=== PATIENT | female | born 1970 | race Caucasian/White ===

== ENCOUNTER → 2017-12-22 07:36 | Outpatient (CLI) | payer OTHER, SELFPAY ==
--- NOTE | 2017-12-22 | DI.MG.S_ITS ---
BILATERAL DIGITAL SCREENING MAMMOGRAM 3D/2D WITH CAD: 12/22/2017 CLINICAL: Routine screening. Comparison is made to exams dated: 11/03/2016 mammogram, 10/08/2015 mammogram, and 10/03/2014 mammogram - . There are scattered fibroglandular elements in both breasts. Current study was also evaluated with a Computer Aided Detection (CAD) system. No significant masses, calcifications, or other findings are seen in either breast. There has been no significant interval change. IMPRESSION: NEGATIVE There is no mammographic evidence of malignancy. A 1 year screening mammogram is recommended. This exam was interpreted at Station ID: [id number]. NOTE: For mammograms, a report in lay terms will be sent to the patient. Approximately 15% of breast malignancies will not be visualized mammographically. In the management of a palpable breast mass, a negative mammogram must not discourage biopsy of a clinically suspicious lesion. Electronically Signed By: David angeles/nela:12/22/2017 17:49:11 letter sent: Normal Exam ACR BI-RADS Category 1: Negative 3341F
== END ==
PROVIDERS: PCP Nurse Practitioner Family; Visit Provider Nurse Practitioner Family
DX: Z12.31 Encounter for screening mammogram for malignant neoplasm of breast (principal)
CPT/HCPCS: 77063; 77067

== ENCOUNTER → 2019-01-04 08:49 | Outpatient (CLI) | payer OTHER, SELFPAY ==
--- NOTE | 2019-01-04 | DI.MG.S_ITS ---
BILATERAL DIGITAL SCREENING MAMMOGRAM 3D/2D WITH CAD: 01/04/2019 CLINICAL: Routine screening. Comparison is made to exams dated: 12/22/2017 mammogram, 11/03/2016 mammogram, and 10/08/2015 mammogram - [facility]. There are scattered fibroglandular elements in both breasts. Current study was also evaluated with a Computer Aided Detection (CAD) system. No significant masses, calcifications, or other findings are seen in either breast. There has been no significant interval change. IMPRESSION: NEGATIVE There is no mammographic evidence of malignancy. A 1 year screening mammogram is recommended. This exam was interpreted at Station ID: [id number]. NOTE: For mammograms, a report in lay terms will be sent to the patient. Approximately 15% of breast malignancies will not be visualized mammographically. In the management of a palpable breast mass, a negative mammogram must not discourage biopsy of a clinically suspicious lesion. Electronically Signed By: Gabriele sawyer/nela:01/04/2019 09:23:36 letter sent: Normal Exam ACR BI-RADS Category 1: Negative 3341F
== END ==
PROVIDERS: PCP Nurse Practitioner Family; Visit Provider Nurse Practitioner Family
DX: Z12.31 Encounter for screening mammogram for malignant neoplasm of breast (principal)
CPT/HCPCS: 77063; 77067

== ENCOUNTER → 2020-01-14 17:04 | Outpatient (CLI) | payer OTHER, SELFPAY ==
--- NOTE | 2020-01-14 17:06 | DI.MG.S_ITS ---
BILATERAL DIGITAL SCREENING MAMMOGRAM 3D/2D WITH CAD: 01/14/2020 CLINICAL: Routine screening. Comparison is made to exams dated: 01/04/2019 mammogram, 12/22/2017 mammogram, and 11/03/2016 mammogram - [facility]. There are scattered fibroglandular elements in both breasts. Current study was also evaluated with a Computer Aided Detection (CAD) system. There is a possible new mass in the right breast at 12 o'clock middle depth. No other significant masses, calcifications, or other findings are seen in either breast. IMPRESSION: INCOMPLETE: NEEDS ADDITIONAL IMAGING EVALUATION The possible new mass in the right breast is indeterminate. Additional views with possible ultrasound are recommended. This exam was interpreted at Station ID: [id number]. NOTE: For mammograms, a report in lay terms will be sent to the patient. Approximately 15% of breast malignancies will not be visualized mammographically. In the management of a palpable breast mass, a negative mammogram must not discourage biopsy of a clinically suspicious lesion. Electronically Signed By: Ricardo bowers/nela:01/15/2020 08:03:21 letter sent: Additional Imaging Needed ACR BI-RADS Category 0: Incomplete 3340F
== END ==
PROVIDERS: PCP Nurse Practitioner Family; Referring Provider Nurse Practitioner Family; Visit Provider Nurse Practitioner Family
DX: Z12.31 Encounter for screening mammogram for malignant neoplasm of breast (principal)
CPT/HCPCS: 77063; 77067

== ENCOUNTER → 2020-02-12 14:12 | Outpatient (CLI) | payer OTHER, SELFPAY ==
--- NOTE | 2020-02-12 14:25 | DI.MG.S_ITS ---
Patient Name: ADALBERTO ZAVALA date: 1970 Sex: F Attending Physician: Indications: Date: 02/12/2020 14:17 At the request of: PRABHJOT FITZGERALD Procedure: MM special view RT UNILATERAL RIGHT DIGITAL DIAGNOSTIC MAMMOGRAM 3D/2D WITH ADDITIONAL VIEWS: 02/12/2020 CLINICAL: Additional evaluation requested from prior study. Comparison is made to exams dated: 01/04/2019 mammogram, 12/22/2017 mammogram, 11/03/2016 mammogram, 01/14/2020 mammogram, 10/08/2015 mammogram, and 10/03/2014 mammogram - [facility]. There are scattered fibroglandular elements in right breast. There is a 0.5 cm round mass with an obscured and circumscribed margin in the right breast at 12 o'clock middle depth. No other significant masses or calcifications are seen in the breast. IMPRESSION: INCOMPLETE: NEEDS ADDITIONAL IMAGING EVALUATION The 0.5 cm round mass in the right breast is indeterminate. A targeted ultrasound is recommended and will immediately follow. This exam was interpreted at Station ID: [id number]. NOTE: For mammograms, a report in lay terms will be sent to the patient. Approximately 15% of breast malignancies will not be visualized mammographically. In the management of a palpable breast mass, a negative mammogram must not discourage biopsy of a clinically suspicious lesion. Electronically Signed By: Sudheer Martinez M.D. slc/:02/12/2020 14:46:51 Continued Report - Page 2 of 2 Patient Name: ADALBERTO ZAVALA date: 1970 Sex: F Attending Physician: Indications: Date: 02/12/2020 14:17 At the request of: PRABHJOT FITZGERALD Procedure: MM special view RT ACR BI-RADS Category 0: Incomplete 3340F
--- NOTE | 2020-02-12 14:45 | DI.US.S_ITS ---
Patient Name: ADALBERTO ZAVALA date: 1970 Sex: F Attending Physician: Indications: Date: 02/12/2020 15:06 At the request of: PRABHJOT FITZGERALD Procedure: US breast RT limited LIMITED ULTRASOUND OF RIGHT BREAST: 02/12/2020 CLINICAL: Patient returns today to evaluate a focal asymmetry in the right breast. Comparison is made to exams dated: 02/12/2020 mammogram, 01/14/2020 mammogram, 01/04/2019 mammogram, 12/22/2017 mammogram, 11/03/2016 mammogram, and 10/08/2015 mammogram - [facility]. Color flow and real-time ultrasound of the right breast 12 o'clock region were performed. Subramanian scale images of the real-time examination were reviewed. There is a 0.7 cm x 0.7 cm x 0.4 cm oval cyst with an irregular internal wall in the right breast at 12 o'clock middle depth 3-4 cm from the nipple. This oval cyst is hypoechoic with internal echoes. This correlates with mammography findings. Color flow imaging demonstrates that there is no vascularity present. There also is a 0.5 cm x 0.4 cm x 0.3 cm oval cyst in the right breast at 12 o'clock middle depth 3-4 cm from the nipple. This oval cyst is hypoechoic with internal echoes. This correlates with mammography findings. Color flow imaging demonstrates that there is no vascularity present. Additionally, there is a benign 1 cm x 0.9 cm x 0.5 cm oval cyst in the right breast central to the nipple anterior depth. This oval cyst is anechoic with a well-defined boundary. Color flow imaging demonstrates that there is no vascularity present. IMPRESSION: PROBABLY BENIGN 1) The 0.7 cm oval cyst in the right breast at 12 o'clock middle depth is consistent with a complicated cyst and is probably benign. 2) The 0.5 cm oval cyst in the right breast at 12 o'clock middle depth is consistent with a complicated cyst and is probably benign. Continued Report - Page 2 of 2 Patient Name: ADALBERTO ZAVALA date: 1970 Sex: F Attending Physician: Indications: Date: 02/12/2020 15:06 At the request of: PRABHJOT FITZGERALD Procedure: US breast RT limited 3) The 1 cm oval cyst in the right breast central to the nipple anterior depth is consistent with a simple cyst and is benign. A follow-up mammogram and an ultrasound in 6 months is recommended to demonstrate stability. Exam results conveyed to the patient. This exam was interpreted at Station ID: [id number]. Electronically Signed By: Sudheer Martinez M.D. slc/:02/12/2020 16:57:08 letter sent: Followup Recommended Ultrasound BI-RADS: 3 Probably benign
== END ==
PROVIDERS: PCP Nurse Practitioner Family; Referring Provider Nurse Practitioner Family; Visit Provider Nurse Practitioner Family
DX: R92.8 Other abnormal and inconclusive findings on diagnostic imaging of breast (principal); N60.02 Solitary cyst of left breast
CPT/HCPCS: 76642; 77065; G0279

== ENCOUNTER → 2020-07-23 14:11 | Outpatient (CLI) | payer OTHER, SELFPAY ==
--- NOTE | 2020-07-23 14:12 | DI.MG.S_ITS ---
UNILATERAL RIGHT DIGITAL DIAGNOSTIC MAMMOGRAM 3D/2D SHORT-TERM FOLLOW-UP: 07/23/2020 CLINICAL: Patient returns for a 6 month follow up of the right breast. Comparison is made to exams dated: 02/12/2020 mammogram, 01/14/2020 mammogram, and 01/04/2019 mammogram - [facility]. There are scattered fibroglandular elements in right breast. There is a 0.6 cm round equal density cyst in the right breast at 12 o'clock anterior depth. This is demonstrated to be cystic by prior ultrasound and has not significantly changed in mammographic appearance. There also is a 1.2 cm low density oval cyst as demonstrated by prior ultraosund, in the right breast at 12 o'clock middle depth. This also has not significantly changed in mammographic appearance. No other significant masses or calcifications are seen in the breast. IMPRESSION: INCOMPLETE: NEEDS ADDITIONAL IMAGING EVALUATION The 0.6 cm cyst in the right breast at 12 o'clock anterior depth is stable. The 1.2 cm oval cyst in the right breast at 12 o'clock middle depth is also stable. Ultrasound is recommended to confirm stability of this area. This was performed immediately following this exam. This exam was interpreted at Station ID: [id number]. NOTE: For mammograms, a report in lay terms will be sent to the patient. Approximately 15% of breast malignancies will not be visualized mammographically. In the management of a palpable breast mass, a negative mammogram must not discourage biopsy of a clinically suspicious lesion. Electronically Signed By: Ilsa cheatham/:07/23/2020 14:47:57 ACR BI-RADS Category 0: Incomplete 3340F
--- NOTE | 2020-07-23 14:13 | DI.US.S_ITS ---
LIMITED ULTRASOUND OF RIGHT BREAST: 07/23/2020 CLINICAL: Patient returns today to evaluate focal asymmetries in the right breast. Comparison is made to exams dated: 07/23/2020 mammogram, 02/12/2020 ultrasound, 02/12/2020 mammogram, 01/14/2020 mammogram, 01/04/2019 mammogram, and 12/22/2017 mammogram - [facility]. Color flow and real-time ultrasound of the right breast 12 o'clock, and retroareolar regions were performed. Subramanian scale images of the real-time examination were reviewed. There is a 0.5 cm x 0.4 cm x 0.4 cm cluster of irregular micro cysts with an irregular internal wall in the right breast at 12 o'clock middle depth 3-4 cm from the nipple. This cluster of irregular micro cysts is hypoechoic with internal echoes. It has not significantly changed and correlates with mammography findings. Color flow imaging demonstrates that there is no vascularity present. There also is a benign 0.4 cm x 0.2 cm x 0.1 cm oval cyst in the right breast at 12 o'clock middle depth 4 cm from the nipple. This oval cyst is hypoechoic with internal echoes. This abnormality is decreased in size and correlates with mammography findings. Color flow imaging demonstrates that there is no vascularity present. Additionally, there is a benign 1 cm x 1.2 cm x 0.5 cm oval cyst in the right breast central to the nipple anterior depth. This oval cyst is anechoic with a well-defined boundary. This cyst is stable. Color flow imaging demonstrates that there is no vascularity present. IMPRESSION: PROBABLY BENIGN The 0.5 cm cluster of irregular micro cysts in the right breast at 12 o'clock middle depth is consistent with a complicated cyst and is probably benign. A follow-up ultrasound in 6 months is recommended to demonstrate stability of this lesion. The 0.4 cm cyst in the right breast at 12 o'clock middle depth has decreased in size, is consistent with a complicated cyst and is benign. The 1.2 cm cyst in the right breast central to the nipple anterior depth is a benign simple cyst. Findings and recommendations were conveyed to the patient at time of exam. This exam was interpreted at Station ID: [id number]. Electronically Signed By: Ilsa cheatham/:07/23/2020 16:17:50 letter sent: Followup Recommended Ultrasound BI-RADS: 3 Probably benign
== END ==
PROVIDERS: PCP Nurse Practitioner Family; Referring Provider Nurse Practitioner Family; Visit Provider Nurse Practitioner Family
DX: R92.8 Other abnormal and inconclusive findings on diagnostic imaging of breast (principal); N60.01 Solitary cyst of right breast
CPT/HCPCS: 76642; 77065; G0279

== ENCOUNTER → 2021-01-12 09:14 | Outpatient (CLI) | payer OTHER, SELFPAY ==
--- NOTE | 2021-01-12 | DI.MG.S_ITS ---
BILATERAL DIGITAL DIAGNOSTIC MAMMOGRAM 3D/2D: 01/12/2021 CLINICAL: Short term follow up, due bilateral. Family history of breast cancer. Comparison is made to exams dated: 07/23/2020 mammogram, 02/12/2020 mammogram, 01/14/2020 mammogram, and 01/04/2019 mammogram - [facility]. There are scattered fibroglandular elements in both breasts. There is an oval equal density asymmetry with an indistinct margin in the right breast at 12 o'clock middle depth. This is less prominent. There also is a new oval low density mass with an obscured and circumscribed margin in the right breast at 11 o'clock middle depth. There is an oval equal density focal asymmetry with an obscured and circumscribed margin in the left breast at 1 o'clock middle depth. No other significant masses or calcifications are seen in either breast. IMPRESSION: INCOMPLETE: NEEDS ADDITIONAL IMAGING EVALUATION The oval equal density asymmetry in the right breast at 12 o'clock middle depth is indeterminate. An ultrasound is recommended. The new oval low density mass in the right breast at 11 o'clock middle depth is indeterminate. An ultrasound is recommended. The oval equal density focal asymmetry in the left breast at 1 o'clock middle depth is indeterminate. An ultrasound is recommended. Ultrasound will be performed immediately following the current exam. This exam was interpreted at Station ID: [id number]. NOTE: For mammograms, a report in lay terms will be sent to the patient. Approximately 15% of breast malignancies will not be visualized mammographically. In the management of a palpable breast mass, a negative mammogram must not discourage biopsy of a clinically suspicious lesion. Electronically Signed By: Mario Garay M.D. ddpoppy/:01/12/2021 10:31:05 ACR BI-RADS Category 0: Incomplete 3340F
--- NOTE | 2021-01-12 | DI.US.S_ITS ---
LIMITED ULTRASOUND OF LEFT BREAST: 01/12/2021 CLINICAL: Patient returns today to evaluate a focal asymmetry in the left breast. Comparison is made to exams dated: 01/12/2021 mammogram, 01/14/2020 mammogram, and 01/04/2019 mammogram - [facility]. Color flow and real-time ultrasound of the left breast were performed on the areas of interest. There is a 0.3 cm x 0.3 cm x 0.2 cm oval cyst in the left breast at 12 o'clock middle depth 3 cm from the nipple. This oval cyst is hypoechoic with a well-defined boundary, internal echoes, and posterior acoustic enhancement. This correlates with mammography findings. Color flow imaging demonstrates that there is no vascularity present. There also is a benign 0.8 cm x 0.5 cm x 0.6 cm oval cyst in the left breast at 12 o'clock middle depth 3 cm from the nipple. This oval cyst is anechoic with a well-defined boundary and posterior acoustic enhancement. This correlates with mammography findings. Color flow imaging demonstrates that there is no vascularity present. IMPRESSION: PROBABLY BENIGN The 0.3 cm x 0.3 cm x 0.2 cm oval cyst in the left breast at 12 o'clock middle depth is consistent with a complicated cyst and is probably benign. Follow-up mammogram and ultrasound in 6 months is recommended. The 0.8 cm x 0.5 cm x 0.6 cm oval cyst in the left breast at 12 o'clock middle depth is consistent with a simple cyst and is benign. A follow-up mammogram and an ultrasound in 6 months are recommended to demonstrate stability. Future imaging is recommended as follows: 01/20/2021 right mammogram and an ultrasound. This exam was interpreted at Station ID: [id number]. Electronically Signed By: Mario kimbrough/:01/12/2021 15:25:56 letter sent: Followup Recommended Ultrasound BI-RADS: 3 Probably benign
--- NOTE | 2021-01-12 | DI.US.S_ITS ---
LIMITED ULTRASOUND OF RIGHT BREAST: 01/12/2021 CLINICAL: 6 month follow-up of cysts. Comparison is made to exams dated: 01/12/2021 mammogram, 07/23/2020 ultrasound, 07/23/2020 mammogram, 02/12/2020 ultrasound, 02/12/2020 mammogram, and 01/14/2020 mammogram - [facility]. Color flow and real-time ultrasound of the right breast 12 o'clock region were performed on the areas of interest. There is a stable 0.5 cm x 0.2 cm x 0.2 cm cluster of oval cysts with a septated internal wall in the right breast at 12 o'clock middle depth 4 cm from the nipple. This cluster of oval cysts is hypoechoic with posterior acoustic enhancement. This correlates with mammography findings. Color flow imaging demonstrates that there is no vascularity present. There also is a benign 1.1 cm x 0.7 cm x 1 cm oval cyst in the right breast at 12 o'clock anterior depth 2 cm from the nipple. This oval cyst is anechoic with a well-defined boundary and posterior acoustic enhancement. This correlates with mammography findings. Color flow imaging demonstrates that there is no vascularity present. Additionally, there is a stable benign 0.2 cm x 0.2 cm x 0.2 cm oval cyst in the right breast at 12 o'clock anterior depth 4 cm from the nipple. This oval cyst is hypoechoic with internal echoes. Color flow imaging demonstrates that there is no vascularity present. IMPRESSION: PROBABLY BENIGN The stable 0.5 cm x 0.2 cm x 0.2 cm cluster of oval cysts in the right breast at 12 o'clock middle depth is probably benign. The 1.1 cm x 0.7 cm x 1 cm oval cyst in the right breast at 12 o'clock anterior depth is consistent with a simple cyst and is benign. The stable 0.2 cm x 0.2 cm x 0.2 cm oval cyst in the right breast at 12 o'clock anterior depth is benign. A follow-up right mammogram and an ultrasound in 12 months are recommended. Future imaging is recommended as follows: 01/20/2021 right mammogram and an ultrasound. This exam was interpreted at Station ID: [id number]. Electronically Signed By: Mario Garay M.D. ddp/:01/12/2021 14:07:26 Entry: cm - 01/13/2021 08:03:42 Ultrasound BI-RADS: 3 Probably benign
== END ==
PROVIDERS: PCP Nurse Practitioner Family; Referring Provider Nurse Practitioner Family; Visit Provider Nurse Practitioner Family
DX: R92.8 Other abnormal and inconclusive findings on diagnostic imaging of breast (principal); N60.01 Solitary cyst of right breast; N60.02 Solitary cyst of left breast; Z80.3 Family history of malignant neoplasm of breast
CPT/HCPCS: 76642; 77066; G0279

== ENCOUNTER → 2021-11-18 08:02 | Outpatient (CLI) | payer OTHER, SELFPAY | PROVIDERS: PCP Nurse Practitioner Family; Referring Provider Internal Medicine; Visit Provider Internal Medicine | DX: Z53.20 Procedure and treatment not carried out because of patient's decision for unspecified reasons (principal) ==

== ENCOUNTER → 2022-02-08 08:43 | Outpatient (CLI) | payer OTHER, SELFPAY ==
--- NOTE | 2022-02-08 | DI.MG.S_ITS ---
BILATERAL DIGITAL DIAGNOSTIC MAMMOGRAM 3D/2D SHORT-TERM FOLLOW-UP: 02/08/2022 CLINICAL: Short term follow up of the left breast, due for bilateral imaging. Comparison is made to exams dated: 01/12/2021 mammogram, 07/23/2020 mammogram, 02/12/2020 mammogram, and 01/14/2020 mammogram - [facility]. There are scattered areas of fibroglandular density in both breasts (category b / 25%-50% glandular tissue). There is an oval equal density asymmetry with an indistinct margin in the right breast at 12 o'clock middle depth. This is not significantly changed. There also is an oval low density mass with an obscured and circumscribed margin in the right breast at 11 o'clock middle depth. This is not significantly changed. There is an oval equal density focal asymmetry with an obscured and circumscribed margin in the left breast at 1 o'clock middle depth. This is less prominent. No other significant masses or calcifications are seen in either breast. IMPRESSION: INCOMPLETE: NEEDS ADDITIONAL IMAGING EVALUATION The oval equal density asymmetry in the right breast at 12 o'clock middle depth is indeterminate. An ultrasound is recommended. The oval low density mass in the right breast at 11 o'clock middle depth and oval equal density focal asymmetry at 12 o'clock remain indeterminate. An ultrasound is recommended for further evaluation and is scheduled to immediately follow this examination. The oval equal density focal asymmetry in the left breast at 1 o'clock middle depth is indeterminate. An ultrasound is recommended but will need to be scheduled for a later date. Based on the Tyrer Cuzick model (a risk assessment model) the patient's lifetime risk is 7.6% and her 10 year risk is 1.9%. According to the ACR, ACS, and NCCN guidelines, an annual breast MRI exam along with mammogram is recommended if the patient's lifetime risk is 20% or greater. This exam was interpreted at Station ID: [id number]. NOTE: For mammograms, a report in lay terms will be sent to the patient. Approximately 15% of breast malignancies will not be visualized mammographically. In the management of a palpable breast mass, a negative mammogram must not discourage biopsy of a clinically suspicious lesion. Electronically Signed By: Gabriele Santiago M.D. aty/:02/08/2022 10:16:21 ACR BI-RADS Category 0: Incomplete 3340F
--- NOTE | 2022-02-08 | DI.US.S_ITS ---
ULTRASOUND OF RIGHT BREAST: 02/08/2022 Comparison is made to exams dated: 02/08/2022 mammogram, 01/12/2021 ultrasound, 01/12/2021 mammogram, 07/23/2020 ultrasound, 07/23/2020 mammogram, and 02/12/2020 ultrasound - [facility]. Color flow and real-time ultrasound of the right breast were performed. Subramanian scale images of the real-time examination were reviewed. There is a 0.5 cm x 0.3 cm x 0.4 cm cluster of oval cysts with a septated internal wall in the right breast at 12 o'clock middle depth 4 cm from the nipple. This cluster of oval cysts is hypoechoic with posterior acoustic enhancement. These abnormalities are not significantly changed and correlates with mammography findings. Color flow imaging demonstrates that there is no vascularity present. There also is a 0.4 cm x 0.3 cm x 0.2 cm oval cyst in the right breast at 12 o'clock anterior depth 4 cm from the nipple. This oval cyst is hypoechoic with internal echoes. This abnormality is not significantly changed. Color flow imaging demonstrates that there is no vascularity present. IMPRESSION: BENIGN There is no sonographic evidence of malignancy in the right breast. The 0.5 cm x 0.3 cm x 0.4 cm cluster of oval cysts in the right breast at 12 o'clock middle depth has demonstrated two years of stability and is consistent with a benign process. The 0.4 cm x 0.3 cm x 0.2 cm oval cyst in the right breast at 12 o'clock anterior depth has demonstrated two years of stability and is consistent with a benign process. is benign. Return to annual mammogram screening schedule is recommended for the right breast. The patient is scheduled to return for left breast ultrasound to evaluate stability of a separate probably benign finding in the left breast. Findings and recommendations were conveyed to the patient during today's evaluation. This exam was interpreted at Station ID: [id number]. Electronically Signed By: Gabriele Santiago M.D. aty/:02/08/2022 10:25:23 Ultrasound BI-RADS: 2 Benign
--- NOTE | 2022-02-11 | DI.US.S_ITS ---
ULTRASOUND OF LEFT BREAST: 02/11/2022 CLINICAL: Patient returns for a 6 month follow up of the left breast. Comparison is made to exams dated: 02/08/2022 mammogram, 01/12/2021 ultrasound, 01/12/2021 mammogram, 01/14/2020 mammogram, 01/04/2019 mammogram, and 12/22/2017 mammogram - [facility]. Color flow and real-time ultrasound of the left breast were performed. Subramanian scale images of the real-time examination were reviewed. There is a 0.3 cm x 0.2 cm x 0.3 cm oval cyst in the left breast at 12 o'clock middle depth 3 cm from the nipple. This oval cyst is hypoechoic with a well-defined boundary, internal echoes, and posterior acoustic enhancement. This abnormality is not significantly changed and correlates with mammography findings. Color flow imaging demonstrates that there is no vascularity present. There also is a 0.5 cm x 0.4 cm x 0.4 cm oval cyst in the left breast at 12 o'clock middle depth 3 cm from the nipple. This oval cyst is anechoic with a well-defined boundary and posterior acoustic enhancement. This abnormality is not significantly changed and correlates with mammography findings. Color flow imaging demonstrates that there is no vascularity present. IMPRESSION: PROBABLY BENIGN The 0.3 cm x 0.2 cm x 0.3 cm oval cyst in the left breast at 12 o'clock middle depth is consistent with a complicated cyst and is probably benign. The 0.5 cm x 0.4 cm x 0.4 cm oval cyst in the left breast at 12 o'clock middle depth is consistent with a complicated cyst and is probably benign. A follow-up bilateral mammogram and left ultrasound in 12 months is recommended to document senior care stability. This exam was interpreted at Station ID: [id number]. Electronically Signed By: Gabriele Santiago M.D. aty/:02/11/2022 13:47:54 letter sent: Followup Recommended Ultrasound BI-RADS: 3 Probably benign
== END ==
PROVIDERS: PCP Internal Medicine; Referring Provider Nurse Practitioner Family; Visit Provider Nurse Practitioner Family
DX: N64.89 Other specified disorders of breast (principal); N60.02 Solitary cyst of left breast; N60.01 Solitary cyst of right breast
CPT/HCPCS: 76642; 77066; G0279

== ENCOUNTER → 2022-02-11 12:35 | Outpatient (CLI) | payer OTHER, SELFPAY | PROVIDERS: PCP Internal Medicine; Referring Provider Internal Medicine; Visit Provider Internal Medicine | DX: R92.8 Other abnormal and inconclusive findings on diagnostic imaging of breast (principal); N60.02 Solitary cyst of left breast | CPT/HCPCS: 76642 ==

== ENCOUNTER → 2022-11-29 14:41 | Outpatient (CLI) | payer OTHER, MEDICAID, SELFPAY ==
--- NOTE | 2022-11-29 | DI.US.S_ITS ---
PROCEDURE: US SOFT TISSUE HEAD AND NECK INDICATIONS: NECK MASS TECHNIQUE: Real-time scanning was performed of the neck region of interest, with image documentation. COMPARISON: [facility], , [place], 10/04/2002, 3:07. FINDINGS: Two thyroid nodules are visualized: 1. Right lobe mid/superior. 1.4 x 0.8 x 1.4 cm. Cystic and solid, isoechoic, wider than tall, smooth margins, no definite suspicious echogenic foci. 2 TI-RADS assessment points, TI-RADS category 2. 2. Right lobe, mid. 0.8 x 0.6 x 0.8 cm. Spongiform. 0 TI-RADS assessment points, TI-RADS category 1. A small spongiform left thyroid nodule may also be present on cine images. No other sonographic abnormality identified within the superficial tissues of the neck. IMPRESSION: 1. Two nodules are visualized within the right lobe of the thyroid gland, not meeting TI-RADS criteria for FNA recommendation. 2. No definite other sonographic abnormality identified within the neck soft tissues. If clinical suspicion persists, CT of the neck could be performed for further evaluation. Dictated by: Ricardo Obrien M.D. on 11/30/2022 at 10:53 Approved by: Ricardo Obrien M.D. on 11/30/2022 at 11:03
== END ==
PROVIDERS: PCP Internal Medicine; Referring Provider Internal Medicine; Visit Provider Internal Medicine
DX: R22.1 Localized swelling, mass and lump, neck (principal)
CPT/HCPCS: 76536

== ENCOUNTER → 2022-12-04 11:13 | Outpatient (CLI) | payer OTHER, MEDICAID, SELFPAY ==
--- NOTE | 2022-12-04 11:14 | DI.RAD.S_ITS ---
PROCEDURE: XR SHOULDER RT MIN 2V INDICATIONS: right shoulder pain without trauma TECHNIQUE: 3 views of the shoulder were acquired. COMPARISON: [facility], , SHOULDER MINIMUM 2VIEW RIGHT, 07/14/2017, 14:45. FINDINGS: Bones: No fractures or dislocations. No suspicious bony lesions. Visualized ribs appear intact. Degenerative changes of the right acromioclavicular joint. Soft tissues: No suspicious soft tissue calcifications. IMPRESSION: 1. Degenerative changes of the right acromioclavicular joint. 2. No acute abnormality. 3. If there is continued pain consider MRI. Dictated by: Sunny Pablo M.D. on 12/04/2022 at 21:52 Approved by: Sunny Pablo M.D. on 12/04/2022 at 21:54
== END ==
PROVIDERS: PCP Internal Medicine; Referring Provider Physician Assistant; Visit Provider Physician Assistant
DX: M25.511 Pain in right shoulder (principal)
CPT/HCPCS: 73030

== ENCOUNTER → 2023-03-11 13:21 | Outpatient (CLI) | payer OTHER, MEDICAID, SELFPAY ==
--- NOTE | 2023-03-11 13:23 | DI.US.S_ITS ---
LIMITED ULTRASOUND OF LEFT BREAST AND AXILLA: 03/11/2023 CLINICAL: 12 month follow-up of cysts. Comparison is made to exams dated: 03/11/2023 mammogram, 02/11/2022 ultrasound, 02/08/2022 mammogram, 01/12/2021 ultrasound, and 01/12/2021 mammogram - [facility]. Color flow ultrasound of the left breast axilla was performed on the areas of interest. Subramanian scale images of the real-time examination were reviewed. There is a stable 0.3 cm x 0.2 cm x 0.3 cm oval cyst in the left breast at 12 o'clock middle depth 3 cm from the nipple. This oval cyst is hypoechoic with a well-defined boundary, internal echoes, and posterior acoustic enhancement. This correlates with mammography findings. Color flow imaging demonstrates that there is no vascularity present. The 0.5 cm x 0.4 cm x 0.4 cm oval cyst in the left breast at 12 o'clock middle depth 3 cm from the nipple is no longer seen. There is a new simple cyst in the left breast at 12 o'clock posterior depth. This simple cyst is anechoic. Color flow imaging demonstrates that there is no vascularity present. IMPRESSION: BENIGN There is no sonographic evidence of malignancy. The stable 0.3 cm x 0.2 cm x 0.3 cm oval cyst in the left breast at 12 o'clock middle depth is consistent with a complicated cyst, has been stable for over 24 months and is benign. The new simple cyst in the left breast at 12 o'clock posterior depth is benign. Return to annual mammogram screening schedule is recommended. This exam was interpreted at Station ID: [id number]. Electronically Signed By: Hui saucedo/:03/11/2023 14:49:21 letter sent: Normal Exam Ultrasound BI-RADS: 2 Benign
--- NOTE | 2023-03-11 13:23 | DI.MG.S_ITS ---
BILATERAL DIGITAL DIAGNOSTIC MAMMOGRAM 3D/2D: 03/11/2023 CLINICAL: Patient returns for a 12 month follow up of the left breast, due for bilateral exam. Comparison is made to exams dated: 02/08/2022 mammogram, 01/12/2021 mammogram, 07/23/2020 mammogram, 02/12/2020 mammogram, and 01/14/2020 mammogram - [facility]. There are scattered areas of fibroglandular density in both breasts (category b / 25%-50% glandular tissue). No significant masses, calcifications, or other findings are seen in either breast. IMPRESSION: INCOMPLETE: NEEDS ADDITIONAL IMAGING EVALUATION A targeted ultrasound of the left breast is recommended to evaluate previously seen complicated cysts and will be performed immediately following this exam. Based on the Tyrer Cuzick model (a risk assessment model) the patient's lifetime risk is 7.6% and her 10 year risk is 1.9%. According to the ACR, ACS, and NCCN guidelines, an annual breast MRI exam along with mammogram is recommended if the patient's lifetime risk is 20% or greater. This exam was interpreted at Station ID: [id number]. NOTE: For mammograms, a report in lay terms will be sent to the patient. Approximately 15% of breast malignancies will not be visualized mammographically. In the management of a palpable breast mass, a negative mammogram must not discourage biopsy of a clinically suspicious lesion. Electronically Signed By: Hui saucedo/:03/11/2023 14:00:28 ACR BI-RADS Category 0: Incomplete [id number]
== END ==
PROVIDERS: PCP Internal Medicine; Referring Provider Internal Medicine; Visit Provider Internal Medicine
DX: R92.8 Other abnormal and inconclusive findings on diagnostic imaging of breast (principal); N60.02 Solitary cyst of left breast
CPT/HCPCS: 76642; 77066; G0279

== ENCOUNTER → 2023-04-27 11:59 | Outpatient (ROUT) | payer OTHER, MEDICAID, SELFPAY ==
[2023-04-27 12:55] LABS: Influenza A - CEPHEID Flu A NEGATIVE (NEGATIVE); Influenza B - CEPHEID Flu B NEGATIVE (NEGATIVE); Respiratory Syncytial Virus Negative (Negative)
[2023-04-27 12:59] LABS: COVID-19 CEPHEID 4-PLEX PCR Negative (Negative)
== END ==
PROVIDERS: PCP Internal Medicine; Visit Provider Internal Medicine
DX: R05.9 Cough, unspecified (principal); R09.89 Other specified symptoms and signs involving the circulatory and respiratory systems
CPT/HCPCS: 0241U

== ENCOUNTER → 2023-06-20 15:13 | Outpatient (CLI) | payer OTHER, MEDICAID, SELFPAY ==
--- NOTE | 2023-06-20 15:14 | DI.US.S_ITS ---
PROCEDURE: US PELVIC COMPLETE INDICATIONS: Postmenopausal bleeding TECHNIQUE: Real-time scanning was performed of the pelvic organs, with image documentation. Additional endovaginal scanning was necessary due to incomplete visualization of the adnexal and endometrial structures by transabdominal scanning. COMPARISON: None. FINDINGS: Uterus: Uterus is anteverted and normal in size at 6.4 x 3.7 x 5.3 cm. The myometrium is heterogeneous. The endometrium measures 2.6 mm combined thickness. No fibroids. Small cystic structures in the subendometrial location of the uterus may represent adenomyosis. Ovaries: The right ovary measures 2.2 x 2.3 x 0.8 cm, with a calculated ovarian volume of 2.1 cc. The left ovary measures 1.6 x 3.3 x 1.8 cm, with a calculated ovarian volume of 4.9 cc. The ovaries have a normal sonographic appearance. Less than 12 follicles can be seen in each ovary. No adnexal masses are seen. Other: No pathologic free abdominal or pelvic fluid. IMPRESSION: Question adenomyosis of the uterus. Otherwise unremarkable study. We strive to produce accurate, complete, and clear reports of imaging services. To assist us in improving patient care, this report was composed using standard report templates and voice recognition software. Therefore, it may contain abnormal punctuation, insertions and/or omissions. Occasional wrong-word or sound-alike substitutions may occur. Though we review the report and make efforts to correct it, we do recommend that the report be read carefully in proper context to recognize any text inaccuracies. Dictated by: Javier Burnett M.D. on 06/20/2023 at 18:28 Approved by: Javier Burnett M.D. on 06/20/2023 at 18:31
== END ==
PROVIDERS: PCP Internal Medicine; Referring Provider Registered Nurse; Visit Provider Registered Nurse
DX: N95.0 Postmenopausal bleeding (principal)
CPT/HCPCS: 76830; 76856

== ENCOUNTER → 2023-10-25 14:50 | Outpatient (CLI) | payer OTHER, MEDICAID, SELFPAY ==
--- NOTE | 2023-10-25 14:52 | DI.RAD.S_ITS ---
PROCEDURE: XR HAND LT MIN 3V INDICATIONS: LF HAND PAIN TECHNIQUE: 3 views of the hand(s) acquired. COMPARISON: None. FINDINGS: Bones: No fractures or dislocations. Carpal bones are normally aligned. No suspicious bony lesions. Mild osteoarthritic changes, most pronounced at the 1st carpometacarpal joint and the 1st metacarpophalangeal joint. Soft tissues: No suspicious soft tissue calcifications. IMPRESSION: Mild osteoarthritis. Dictated by: Abhinav Williamson M.D. on 10/25/2023 at 17:39 Approved by: Abhinav Williamson M.D. on 10/25/2023 at 17:40
== END ==
PROVIDERS: PCP Internal Medicine; Referring Provider Internal Medicine; Visit Provider Internal Medicine
DX: M19.042 Primary osteoarthritis, left hand (principal); M79.642 Pain in left hand
CPT/HCPCS: 73130

== ENCOUNTER → 2024-04-30 14:13 | Outpatient (CLI) | payer OTHER, MEDICAID, SELFPAY ==
--- NOTE | 2024-04-30 14:15 | DI.MG.S_ITS ---
BILATERAL DIGITAL SCREENING MAMMOGRAM 3D/2D WITH CAD: 04/30/2024 CLINICAL: Routine screening. Family history breast cancer. Comparison is made to exams dated: 03/11/2023 mammogram, 02/08/2022 mammogram, 01/12/2021 mammogram, 07/23/2020 mammogram, 02/12/2020 mammogram, and 01/14/2020 mammogram - [facility]. There are scattered areas of fibroglandular density (category b / 25%-50% glandular tissue). Current study was also evaluated with a Computer Aided Detection (CAD) system. No significant masses, calcifications, or other findings are seen in either breast. There has been no significant interval change. IMPRESSION: NEGATIVE There is no mammographic evidence of malignancy. A 1 year screening mammogram is recommended. Based on the Tyrer Cuzick model (a risk assessment model) the patient's lifetime risk is 7.4% and her 10 year risk is 2.1%. According to the ACR, ACS, and NCCN guidelines, an annual breast MRI exam along with mammogram is recommended if the patient's lifetime risk is 20% or greater. This exam was interpreted at Station ID: [id number]. NOTE: For mammograms, a report in lay terms will be sent to the patient. Approximately 15% of breast malignancies will not be visualized mammographically. In the management of a palpable breast mass, a negative mammogram must not discourage biopsy of a clinically suspicious lesion. Electronically Signed By: Latoya Sanches M.D., Ph.D. syed/nela:05/02/2024 10:50:48 letter sent: Normal Exam ACR BI-RADS Category 1: Negative
== END ==
PROVIDERS: PCP Internal Medicine; Referring Provider Internal Medicine; Visit Provider Internal Medicine
DX: Z12.31 Encounter for screening mammogram for malignant neoplasm of breast (principal); Z80.3 Family history of malignant neoplasm of breast
CPT/HCPCS: 77063; 77067

== ENCOUNTER → 2024-12-21 10:27 | Outpatient (ROUT) | payer OTHER, MEDICAID, SELFPAY ==
[2024-12-21 10:53] LABS: INR 1.0 (0.9-1.3); Prothrombin Time 11.2 SECONDS (9.4-12.5)
[2024-12-21 10:55] LABS: PTT Partial Thromboplastin Tim 32 SECONDS (25.1-36.5)
== END ==
PROVIDERS: PCP Internal Medicine; Visit Provider Registered Nurse
DX: N95.0 Postmenopausal bleeding (principal)
CPT/HCPCS: 85610; 85730